=== PATIENT | male | born 1985 | race Hispanic/Latino ===

== ENCOUNTER 2018-05-05 11:50 | Emergency (ER) | payer OTHER ==
[2018-05-05 12:02] VITALS: BP 120/71; PULSE 88; TEMP 98.1; O2SAT 98
[2018-05-05 12:03] VITALS: BMI 23.7
[2018-05-05] MEDS ORDERED: Sodium Chloride 0.9% 1,000 ML IV STA (12:42)
--- NOTE | 2018-05-05 12:52 | ED PDOC ---
Upper Extremity Pain/Injury Time Seen by Provider: 05/05/18 12:29 Chief Complaint (Nursing): Abnormal Skin Integrity Chief Complaint (Provider): Right Elbow Pain History Per: Patient History/Exam Limitations: no limitations Onset/Duration Of Symptoms: Days (x5-6) Current Symptoms Are (Timing): Still Present Additional Complaint(s): 32-year-old male with no significant past medical history presenting for evaluation of right elbow pain and redness x5-6 days. Patient states on Sunday or Sunday he noticed some elbow discomfort associated with redness and swelling. He reports his symptoms worsened, prompting him to present to [facility] on Sunday. He says he was given a short of Rocephin, as well as prescriptions for Bactrim and Keflex which he reports taking as prescribed. He states the erythematous area was marked with a border and he was advised to present to the ED if his symptoms persisted or worsened after 48 hours. He states he developed a fever and chills Sunday night which resolved after taking 2 tablets of Advil. He reports continued Advil use with last dose yesterday night. Patient is presenting today for evaluation of his elbow pain, redness, and swelling. PMD: None Past Medical History Reviewed: Historical Data, Nursing Documentation, Vital Signs Vital Signs: Last Vital Signs Temp 98.1 F 05/05/18 12:02 Pulse 88 05/05/18 12:02 Resp BP 120/71 05/05/18 12:02 Pulse Ox 98 05/05/18 12:02 - Medical History PMH: No Chronic Diseases - Surgical History Surgical History: No Surg Hx - Family History Family History: States: Unknown Family Hx - Immunization History Hx Tetanus Toxoid Vaccination: No - Home Medications Home Medications: Ambulatory Orders Medication Instructions Recorded Sulfamethoxazole/Trimethoprim 2 each PO BID #40 tablet 05/05/18 [Bactrim 400-80 mg Tablet] - Allergies Allergies/Adverse Reactions: Allergies Allergy/AdvReac Type Severity Reaction Status Date / Time Penicillins Allergy RASH Verified 05/05/18 12:44 Review of Systems ROS Statement: Except As Marked, All Systems Reviewed And Found Negative Constitutional: Positive for: Fever, Chills Musculoskeletal: Positive for: Arm Pain (right elbow pain with redness and swelling) Physical Exam - Reviewed Nursing Documentation Reviewed: Yes Vital Signs Reviewed: Yes - Physical Exam Appears: Positive for: Non-toxic, No Acute Distress Head Exam: Positive for: ATRAUMATIC Skin: Positive for: Normal Color, Warm Eye Exam: Positive for: Normal appearance Neck: Positive for: Normal Respiratory: Negative for: Respiratory Distress Extremity: Positive for: Other (erythema to right posterior elbow and forearm, positive blanching to defined border ) Neurologic/Psych: Positive for: Alert - Laboratory Results Result Diagrams: 05/05/18 12:55 05/05/18 12:55 - ECG O2 Sat by Pulse Oximetry: 98 (RA) Pulse Ox Interpretation: Normal Medical Decision Making Medical Decision Makin:42 Plan: Patient showed this provider pictures demonstrating the progress of his symptoms. Pictures showed symptoms have greatly improved since onset. -CMP -CBC -1LNS -Blood culture Discussed with Dr. De La Cruz. Scribe Attestation: Documented by Waylon Gallagher, acting as a scribe for Ange Navarro PA-C. Provider Scribe Attestation: All medical record entries made by the scribe were at my direction and personally dictated by me. I have reviewed the chart and agree that the record accurately reflects my personal performance of the history, physical exam, medical decision making, and the department course for this patient. I have also personally directed, reviewed, and agree with the discharge instructions and disposition. Disposition - Clinical Impression Clinical Impression: Cellulitis - Disposition Disposition: Routine/Home Disposition Time: 14:04 Condition: GOOD Prescriptions: Sulfamethoxazole/Trimethoprim [Bactrim 400-80 mg Tablet] 2 each PO BID #40 tablet Instructions: Cellulitis (Skin Infection), Adult (DC) Forms: [employer] ([place]izen [place])
[2018-05-05 13:28] LABS: BASO % 0.5 % (0.0-2.0); EOS # 0.1 K/uL (0.0-0.7); EOS % 1.3 % (0.0-4.0); HEMOGLOBIN 14.8 g/dL (12.0-18.0); LYMPH % 14.3 % (20.0-40.0); MEAN CORPUSCULAR HEMOGLOBIN 31.6 pg (27.0-31.0); MEAN CORPUSCULAR HGB CONC 34.7 g/dL (33.0-37.0); MEAN PLATELET VOLUME 7.5 fl (7.2-11.7); MONO # 0.6 K/uL (0.0-0.8); MONO % 8.8 % (0.0-10.0); NEUT # 5.1 K/uL (1.8-7.0); NEUT % 75.1 % (50.0-75.0); RBC 4.69 Mil/uL (4.40-5.90); RED CELL DISTRIBUTION WIDTH 12.8 % (11.5-14.5); WHITE BLOOD COUNT 6.9 K/uL (4.8-10.8)
[2018-05-05 13:53] LABS: ALB/GLOB RATIO 1.3 (1.0-2.1); ALBUMIN 4.3 g/dL (3.5-5.0); ALT/SGPT 25 U/L (21-72); AST/SGOT 31 U/L (17-59); BLOOD UREA NITROGEN 17 mg/dl (9-20); CALCIUM 9.3 mg/dL (8.4-10.2); GFR AFRICAN-AMERICAN > 60; GFR NON-AFRICAN AMERICAN > 60
== END 2018-05-05 15:29 | disposition home or self-care (01) ==
LOC: H.ER 11:50
DX: L03.113 Cellulitis of right upper limb (principal); Z88.0 Allergy status to penicillin
CPT/HCPCS: 80053; 85025; 87040; 99282; J7030